=== PATIENT | female | born 1970 | race African-American/Black ===

== ENCOUNTER 2017-04-04 13:14 | Emergency (ER) | payer MEDICAID ==
[~2017-04-04] VITALS: Ht 160 cm; Wt 77.1 kg
[~2017-04-04 13:14] MED LIST: CLINDAMYCIN HC300 MG ORAL; IBUPROFEN600 MG ORAL; MICONAZOLE 7100 MG VG; NKM; VIBRAMYCIN100 MG ORAL
[2017-04-04] MEDS ORDERED: NKM (13:24)
--- NOTE | 2017-04-04 13:34 | Emergency Room Report ---
History of Present Illness General Chief Complaint: Chest Pain Source: Patient Present Illness HPI Patient presents with complaints of midsternal chest pain Patient reports that previously she had some similar episodes However over the past several days she felt pain midsternal off-and-on Also felt tingling sensation in the left upper arm At this time denies any tingling sensation Denies any shortness of breath When the pain comes on is a sharp-type pain in the left upper chest four out of 10 Denies any pleurisy Denies any recent travel Denies any back or flank pain denies any calf swelling Allergies: Coded Allergies: PENICILLINS (Verified Allergy, 03/20/13) Patient History Past Medical History: see triage record Pertinent Family History: HTN, DM Last Menstrual Period: 03/23/17 Now: No Reviewed Nursing Documentation: PMH: Agreed, PSxH: Agreed Nursing Documentation-PMH Past Medical History: No Stated History Review of Systems All Other Systems: negative except mentioned in HPI Physical Exam Vital Signs Date Time Temp Pulse Resp B/P Pulse Ox O2 Delivery O2 Flow Rate FiO2 04/04/17 13:19 98.4 69 16 119/80 97 Room Air Sp02 EP Interpretation: reviewed, normal General Appearance: well appearing, no apparent distress Head: normocephalic, atraumatic Eyes: bilateral eye EOMI, bilateral eye PERRL ENT: hearing grossly normal, normal pharynx, TMs + canals normal, uvula midline Neck: full range of motion, supple, no meningismus, no bony tend Respiratory: lungs clear, normal breath sounds, no rhonchi, no respiratory distress, no retraction, no accessory muscle use Cardiovascular #1: normal peripheral pulses, regular rate, rhythm, no edema, no gallop, no JVD, no murmur Gastrointestinal: normal bowel sounds, non tender, soft, no mass, no organomegaly, non-distended, no guarding, no hernia, no pulsatile mass, no rebound Genitourinary: no CVA tenderness Musculoskeletal: normal inspection Neurologic: oriented x3, responsive, 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, motor strength/ tone normal, sensory intact Psychiatric: mood/affect normal Skin: normal color, no rash, warm/dry, palpation normal Lymphatic: normal inspection, no adenopathy Medical Decision Making ER Course Patient is a fairly complex patient with multiple differential to consideration including but not limited to cardiac cardiopulmonary and vascular emergencies The patient's blood work and imaging was initiated Patient's care and that often oncoming physician for further review and final disposition Last Vital Signs Date Time Temp Pulse Resp B/P Pulse Ox O2 Delivery O2 Flow Rate FiO2 04/04/17 13:19 98.4 69 16 119/80 97 Room Air Signed Out To: Dr burgess 14:00 Scripts Aspirin* (ASPIRIN EC*) 325 Mg Tablet. 325 MG ORAL DAILY, #30 TAB Prov: Farooq Burgess 04/04/17 CHANG PARRA D.O. April 04, 2017 13:34
[2017-04-04 14:00] VITALS: BP 119/65
[2017-04-04 14:11] LABS: BASOPHILS % (AUTO) 1.3 % (0.0-2.0); EOSINOPHILS % (AUTO) 3.7 % (0.0-3.0); LYMPHOCYTES % (AUTO) 44.5 % (20.0-45.0); MEAN CORPUSCULAR HEMOGLOBIN 29.4 PG (27.0-31.0); MEAN CORPUSCULAR HGB CONC 32.9 G/DL (32.0-36.0); MEAN CORPUSCULAR VOLUME 89 FL (80-99); MEAN PLATELET VOLUME 8.4 FL (6.5-10.1); MONOCYTES % (AUTO) 9.6 % (1.0-10.0); PLATELET COUNT 231 K/UL (150-450); RED BLOOD COUNT 3.86 M/UL (4.20-5.40); RED CELL DISTRIBUTION WIDTH 12.4 % (11.6-14.8); WHITE BLOOD COUNT 6.4 K/UL (4.8-10.8)
[2017-04-04 14:24] LABS: PROTHROMBIN TIME 10.5 SEC (9.30-11.50)
[2017-04-04 14:30] LABS: TROPONIN I < 0.30 ng/mL (<=0.30)
[2017-04-04 14:33] LABS: ALANINE AMINOTRANSFERASE 26 U/L (3-33); ALBUMIN/GLOBULIN RATIO 1.2 (1.0-2.7); ANION GAP 14 (5-15); ASPARTATE AMINO TRANSFERASE 23 U/L (5-40); CALCIUM 9.2 mg/dL (8.6-10.2); CARBON DIOXIDE 26 mEQ/L (20-30); CHLORIDE 100 mEQ/L (98-107); CREATININE 0.8 mg/dL (0.5-0.9); GLOMERULAR FILTRATION RATE > 60 mL/min (>60); HEMOLYSIS 6; POTASSIUM 4.2 mEQ/L (3.4-4.9); SODIUM 140 mEQ/L (135-145); TOTAL PROTEIN 7.3 g/dL (6.6-8.7)
[2017-04-04 14:44] LABS: CKMB 1.7 ng/mL (< 3.8)
[2017-04-04 15:00] VITALS: BP 112/71
[2017-04-04] MEDS ORDERED: ASPIRIN EC325 MG ORAL (15:02)
[2017-04-04 15:41] VITALS: BP 112/71
--- NOTE | 2017-04-04 16:19 | Diagnostic Imaging Report ---
Indication: Chest Pain Comparison: None A single view chest radiograph was obtained. Findings: Cardiomediastinal appearance is within normal limits for age. Aorta is ectatic. Pulmonary vascularity is appropriate. The diaphragmatic contour is smooth and costophrenic angles are sharp. No pleural effusions are identified. The bones are unremarkable. Impression: No acute findings. Atherosclerotic vascular disease
--- NOTE | 2017-04-05 14:27 | Cardiology Report ---
APPROVED REPORT EKG Measurement Heart [id number] Normal sinus rhythm Normal ECG
== END 2017-04-04 15:42 | disposition home or self-care (01) ==
LOC: EMR 13:50
DX: R07.89 Other chest pain (principal); I10 Essential (primary) hypertension; E11.9 Type 2 diabetes mellitus without complications; Z88.0 Allergy status to penicillin
CPT/HCPCS: 36415; 71010; 80053; 82550; 82553; 83880; 84484; 85025; 85610; 85730; 93005; 99283

== ENCOUNTER 2017-06-04 17:31 | Emergency (ER) | payer MEDICAID ==
[~2017-06-04] VITALS: Ht 160 cm; Wt 83.5 kg
[~2017-06-04 17:31] MED LIST changes: +ASPIRIN EC325 MG ORAL
--- NOTE | 2017-06-04 17:49 | Emergency Room Report ---
History of Present Illness General Chief Complaint: Pain Source: Patient Present Illness HPI 46 YO Female presents to the ED c/o : Tooth pain and swelling to the right lower jaw x 2 days 05/30 in severity. Pt reports she had filling fall out of tooth many months ago and did not see a dentist as she wasnt having any symptoms /problems, pt. states dull ache began approximately 3 days ago, and since yesterday she has has some swelling to the right gumline adjacent to the tooth, and the tooth is now painful. denies N/V/F/C, sore throat , neck pain or stiffness. Denies CP, Palpitations, LOC, AMS, dizziness, Changes in Vision, Sensation, paresthesias, or a sudden severe headache. Allergies: Coded Allergies: PENICILLINS (Verified Allergy, 03/20/13) Patient History Past Medical History: see triage record Past Surgical History: none Last Menstrual Period: 05/21/17 Now: No Reviewed Nursing Documentation: PMH: Agreed, PSxH: Agreed Nursing Documentation-PMH Past Medical History: No Stated History Review of Systems All Other Systems: negative except mentioned in HPI Physical Exam Vital Signs Date Time Temp Pulse Resp B/P Pulse Ox O2 Delivery O2 Flow Rate FiO2 06/04/17 17:38 98.2 75 15 119/72 98 Room Air Sp02 EP Interpretation: reviewed, normal General Appearance: alert, GCS 15, non-toxic, mild distress Head: normocephalic, atraumatic Eyes: bilateral eye PERRL, bilateral eye normal inspection ENT: hearing grossly normal, normal pharynx, no angioedema, normal voice, uvula midline, moist mucus membranes, other - gingival abscess with pulpitis. about tooth number 31, fluctuance palpated, erythema noted. Neck: full range of motion, supple/symm/no masses Respiratory: lungs clear, normal breath sounds, speaking full sentences Cardiovascular #1: regular rate, rhythm, no edema Musculoskeletal: back normal, gait/station normal, normal range of motion, non- tender Neurologic: alert, oriented x3, responsive, motor strength/tone normal, sensory intact, speech normal Psychiatric: judgement/insight normal, memory normal, mood/affect normal Skin: normal color, no rash, warm/dry, well hydrated Lymphatic: no adenopathy Medical Decision Making PA Attestation Dr. Burgess is my supervising Physician whom patient management has been discussed with. Diagnostic Impression: Primary Impression: Acute pulpitis Additional Impression: Gingival abscess ER Course 46 YO Female presents to the ED c/o : Tooth pain and swelling to the right lower jaw x 2 days 05/30 in severity. Pt reports she had filling fall out of tooth many months ago and did not see a dentist as she wasnt having any symptoms /problems, pt. states dull ache began approximately 3 days ago, and since yesterday she has has some swelling to the right gumline adjacent to the tooth, and the tooth is now painful. denies N/V/F/C, sore throat , neck pain or stiffness. Denies CP, Palpitations, LOC, AMS, dizziness, Changes in Vision, Sensation, paresthesias, or a sudden severe headache. Ddx considered but are not limited to:tooth abscess, tooth avulsion, SAFETY DEPOSIT CLERK, [place] angina, cellulitis Vital signs: are WNL, pt. is afebrile H&PE are most consistent with: gingival abscess with pulpitis. about tooth number 31, fluctuance palpated, erythema noted. ORDERS: None required at this time as the diagnosis is clinical ED INTERVENTIONS: -Pt declines I & D. -600mg IBU PO -d/w pt. that she will be d/c with oral abx, and list of dental clinics, d/w pt. to return to the ED with worsening or symptoms, new symptoms, or if she decides she wants I & D after all. DISCHARGE: At this time pt. is stable for d/c to home. Will provide printed patient care instructions, and any necessary prescriptions. Care plan and follow up instructions have been discussed with the patient prior to discharge. Last Vital Signs Date Time Temp Pulse Resp B/P Pulse Ox O2 Delivery O2 Flow Rate FiO2 06/04/17 17:38 98.2 75 15 119/72 98 Room Air Disposition: HOME, SELF-CARE Condition: Stable Scripts Hydrocodone Bit/Acetaminophen 5-325* (NORCO 5-325 TABLET*) 1 Each Tablet 1 TAB ORAL Q8HR Y for For Pain, #7 TAB Prov: Zenobia Khanna P.A. 06/04/17 Ibuprofen* (MOTRIN*) 600 Mg Tablet 600 MG ORAL THREE TIMES A DAY, #30 TAB 0 Refills Prov: Zenobia Khanna P.A. 06/04/17 Amoxicillin* (AMOXIL*) 500 Mg Capsule 500 MG ORAL BID for 7 Days, #14 CAP Prov: Zenobia Khanna 06/04/17 Patient Instructions: Dental Abscess, [id number] Additional Instructions: Take medications as directed. Follow up with a Primary Care Provider in 3-5 days, even if your symptoms have resolved. --Please review list of primary care clinics, if you do not already have a primary care provider Return sooner to ED if new symptoms occur, or current symptoms become worse. Do not drink alcohol, drive, or operate heavy machinery while taking [place] as this may cause drowsiness. - Please note that this Emergency Department Report was dictated using [employer] operator technology software, occasionally this can lead to erroneous entry secondary to interpretation by the dictation equipment. Zenobia Khanna Jun 04, 2017 17:49
[2017-06-04] MEDS ORDERED: IBUPROFEN600 MG ORAL (18:10)
[2017-06-04] MEDS ORDERED: NORCO 5-325 TA1 EAC1 ORAL (18:10)
[2017-06-04] MEDS ORDERED: AMOXICILLIN500 MG ORAL (18:10)
[2017-06-04 18:36] VITALS: BP 119/72
[2017-06-04 18:37] VITALS: BP 119/72
== END 2017-06-04 18:30 | disposition home or self-care (01) ==
LOC: EMR 18:14
DX: K04.01 Reversible pulpitis (principal); K05.219 Aggressive periodontitis, localized, unspecified severity; Z88.0 Allergy status to penicillin
CPT/HCPCS: 99284

== ENCOUNTER 2017-11-10 18:20 | Emergency (ER) | payer MEDICAID ==
[~2017-11-10] VITALS: Ht 160 cm; Wt 84.8 kg
[~2017-11-10 18:20] MED LIST changes: +AMOXICILLIN500 MG ORAL; +NORCO 5-325 TA1 EAC1 ORAL
[2017-11-10] MEDS ORDERED: TAMIFLU30 MG ORAL (18:51)
[2017-11-10] MEDS ORDERED: IBUPROFEN600 MG ORAL (18:51)
[2017-11-10] MEDS ORDERED: LORATADINE10 M2 PO (18:51)
[2017-11-10] MEDS ORDERED: BROMFED DM COU118 ML PO (18:51)
[2017-11-10] MEDS ORDERED: ALBUTEROL SULF8.5 GM INH (18:51)
--- NOTE | 2017-11-10 18:52 | Emergency Room Report ---
History of Present Illness General Chief Complaint: Flu Like Symptoms Source: Patient Present Illness HPI 47 y/o female c/o URI sxs x 2 days. Assoc sxs include nasal congestion, rhinorrhea, sore throat, post nasal drip, bodyaches, chills, and cough due to tickle in the throat. States they have take Nyquil and theraflu w/o improvement of symptoms. Denies any current n/v/f/c/d, abd pain, back pain, neck pain, photophobia, phonophobia, CP, SOB or headache. Allergies: Coded Allergies: PENICILLINS (Verified Allergy, 03/20/13) Patient History Past Medical History: see triage record Past Surgical History: none Pertinent Family History: none Now: No Reviewed Nursing Documentation: PMH: Agreed, PSxH: Agreed Nursing Documentation-PMH Past Medical History: No Stated History Review of Systems All Other Systems: negative except mentioned in HPI Physical Exam Vital Signs Date Time Temp Pulse Resp B/P (MAP) Pulse Ox O2 Delivery O2 Flow Rate FiO2 11/10/17 18:28 100.4 106 20 114/72 97 Room Air Sp02 EP Interpretation: reviewed, normal General Appearance: no apparent distress, alert, GCS 15, non-toxic Head: normocephalic, atraumatic Eyes: bilateral eye normal inspection, bilateral eye PERRL ENT: hearing grossly normal, normal pharynx, no angioedema, normal voice, TMs + canals normal, nasal congestion Neck: full range of motion, supple/symm/no masses Respiratory: chest non-tender, lungs clear, normal breath sounds, speaking full sentences Cardiovascular #1: regular rate, rhythm, no edema Gastrointestinal: non tender, soft Musculoskeletal: back normal, gait/station normal, normal range of motion, non- tender, calf tenderness Neurologic: alert, oriented x3, responsive, motor strength/tone normal, sensory intact, speech normal Psychiatric: judgement/insight normal, memory normal, mood/affect normal, no suicidal/homicidal ideation Skin: normal color, no rash, warm/dry, well hydrated Medical Decision Making PA Attestation Dr. Mcknight my supervising physician with whom patient management has been discussed with. Diagnostic Impression: Primary Impression: Influenza-like symptoms ER Course Pt. presents to the ED c/o of cough and congestion Ddx considered but are not limited to bronchitis, pneumonia, viral upper respiratory tract infection Vital signs: are WNL, pt. is afebrile H&PE are most consistent with viral upper respiratory tract infection ORDERS: none required at this time, the diagnosis is clinical ED INTERVENTIONS: Ibuprofen 600 DISCHARGE: At this time pt. is stable for d/c to home. Will provide printed patient care instructions, and any necessary prescriptions. Care plan and follow up instructions have been discussed with the patient prior to discharge. Last Vital Signs Date Time Temp Pulse Resp B/P (MAP) Pulse Ox O2 Delivery O2 Flow Rate FiO2 11/10/17 18:35 106 20 Room Air 11/10/17 18:28 100.4 114/72 97 Disposition: HOME, SELF-CARE Condition: Stable Scripts Ibuprofen* (MOTRIN*) 600 Mg Tablet 600 MG ORAL Q6H Y for For Pain, #30 TAB Prov: SHAYY DE GUZMANM P.A. 11/10/17 Loratadine (LORATADINE) 10 Mg Tablet 10 MG PO DAILY for 14 Days, #14 TAB Prov: SABROSALIO LOPEZEEM P.A. 11/10/17 D-Methorphan Hb/P-Epd Hcl/Bpm (BROMFED DM COUGH SYRUP) 118 Ml Syrup 5 ML PO BEDTIME for 7 Days, #120 ML Prov: SHAYY DE GUZMANM P.A. 11/10/17 Albuterol Sulfate* (ALBUTEROL SULFATE MDI*) 8.5 Gm Hfa.aer.ad 2 PUFF INH Q4H, #1 INH 0 Refills Prov: SABSHAYY LOPEZM P.A. 11/10/17 Oseltamivir Phosphate (TAMIFLU) 30 Mg Capsule 30 MG ORAL TWICE A DAY, #14 CAP Prov: SABRY,TAMEEM P.A. 11/10/17 Patient Instructions: INFLUENZA (Adult) Additional Instructions: Take medication as directed. Drink plenty of fluids which include Gatorade and water. Get plenty of rest. Avoid taking medications on an empty stomach. If you have cough avoid dairy and cold beverages. If you have a fever, headache or body aches please take [id number] tylenol/motrin/advil unless a prescription for these symptoms have been given. If your symptoms are worsening or you have shortness or breath, severe headaches or chest pain, please call 911 or go to the ER. STANLEY DE GUZMAN Nov 10, 2017 18:51
[2017-11-10 19:00] VITALS: BP 120/85
== END 2017-11-10 19:00 | disposition home or self-care (01) ==
LOC: EMR 18:52
DX: J11.1 Influenza due to unidentified influenza virus with other respiratory manifestations (principal)
CPT/HCPCS: 99284